=== PATIENT | female | born 1960 | race Caucasian/White ===

== ENCOUNTER 2021-12-10 10:00 | Outpatient (CLI) | payer MEDICAID, SELFPAY ==
[~2021-12-10] VITALS: Ht 152.4 cm; Wt 63.5 kg
== END 2021-12-10 11:00 | disposition home or self-care (01) ==
LOC: SLB 10:00 → EDSTATUS 12-14 11:15
PROVIDERS: ATTEND Internal Medicine Gastroenterology
DX: Z20.822 Contact with and (suspected) exposure to COVID-19 (principal); R13.10 Dysphagia, unspecified
CPT/HCPCS: U0003

== ENCOUNTER 2022-01-20 07:30 | Day surgery (SDC) | payer MEDICAID, SELFPAY ==
[~2022-01-20] VITALS: Ht 152.4 cm; Wt 63.5 kg
[2022-01-20] MEDS ORDERED: MIDAZOLAM HCL 5 MG/5 ML VIAL ONE (07:58)
[2022-01-20] MEDS ORDERED: MEPERIDINE 100 MG INJ. 100 MG/ML VIAL ONE (07:58)
[2022-01-20 13:53] VITALS: BP_SYST 129
== END 2022-01-20 10:40 | disposition home or self-care (01) ==
LOC: SDS 07:30 → SMU 07:32 → SDS 10:40
PROVIDERS: ATTEND Internal Medicine Gastroenterology
DX: Z12.11 Encounter for screening for malignant neoplasm of colon (principal); K64.9 Unspecified hemorrhoids; Z86.010 Personal history of colon polyps; I10 Essential (primary) hypertension; E11.9 Type 2 diabetes mellitus without complications; Z79.84 Long term (current) use of oral hypoglycemic drugs; Z20.822 Contact with and (suspected) exposure to COVID-19; Z79.899 Other long term (current) drug therapy
CPT/HCPCS: 36415; 45378; 82962; 87426; 99152; 99153; G0378; J2175; J2250; U0003